=== PATIENT | male | born 1995 | race Caucasian/White ===

== ENCOUNTER 2020-10-23 09:20 | Emergency (ER) | payer OTHER ==
--- NOTE | 2020-10-23 09:22 | ERPHSYRPT ---
- History of Present Illness Time Seen by Provider: 10/23/20 09:22 Historian: patient, family Exam Limitations: no limitations Physician History: This is a 25-year-old white male who has history of gastroesophageal reflux disease and has had intermittent sharp, left anterior chest pain and left shoulder pain for approximately 2 months. He had significant attack of this same sharp, left-sided chest pain which radiated into his left shoulder and had associated shortness of breath and a heart rate that went in the 170s beats per minute per a pulse ox measurement. Patient was concerned he was having a heart attack and called ambulance service who brought him into the emergency room for evaluation. Patient has no known cardiac history. However, this patient has a hi story of gastroesophageal reflux disease. He has had the left shoulder pain evaluated by another emergency room approximately 1 week ago and within the last week he is also had the left shoulder pain evaluated by orthopedic services at another institution. Patient also had bilateral lower extremity venous Dopplers which did not show any DVTs per his report. The only medication he is taking is generic omeprazole. He has had no cough. He has no fevers chills. He denies abdominal pain. He denies nausea vomiting diarrhea. He denies any acute traumatic injury. He also denies any new emotional stressors in his life. Timing/Duration: week(s) (Eight), worse Quality: sharpness Severity of Pain-Max: moderate Severity of Pain-Current: moderate Modifying Factors: Improves With: nothing Associated Symptoms: shortness of breath Prior Chest Pain/Cardiac Workup: no prior cardiac workup Nitro Today/Relief: no nitro taken today Aspirin Treatment Today: no aspirin today Allergies/Adverse Reactions: No Known Drug Allergies Allergy (Unverified 10/23/20 09:23) Home Medications: PANTOPRAZOLE 40 mg Tablet [Protonix 40MG Tablet] 1 tab PO DAILY 10/23/20 [History] Travel Risk - International Travel Have you traveled outside of the country in past 3 weeks: No - Coronavirus Screening Are you exhibiting any of the following symptoms?: No Close contact with a COVID-19 positive Pt in past 14-21 Days: No - Review of Systems Constitutional: No Symptoms Eyes: No Symptoms Ears, Nose, & Throat: No Symptoms Respiratory: Dyspnea (Mild) Cardiac: Chest Pain Abdominal/Gastrointestinal: No Symptoms Genitourinary Symptoms: No Symptoms Musculoskeletal: No Symptoms Skin: No Symptoms Neurological: No Symptoms Psychological: No Symptoms Endocrine: No Symptoms Hematologic/Lymphatic: No Symptoms Immunological/Allergic: No Symptoms All Other Systems: Reviewed and Negative - Past Medical History Pertinent Past Medical History: Yes - Past Surgical History Past Surgical History: Yes - Nursing Vital Signs Nursing Vital Signs: Initial Vital Signs Temperature 98.0 F 10/23/20 09:25 Pulse Rate 87 10/23/20 09:25 Respiratory Rate 19 10/23/20 09:25 Blood Pressure 142/90 10/23/20 09:25 O2 Sat by Pulse Oximetry 98 10/23/20 09:25 Pain Scale Pain Intensity 6 - Physical Exam General Appearance: mild distress, alert, anxiety Eye Exam: PERRL/EOMI, eyes nml inspection Ears, Nose, Throat Exam: normal ENT inspection, moist mucous membranes Neck Exam: normal inspection, non-tender, supple, full range of motion Respiratory Exam: normal breath sounds, chest tenderness, lungs clear, airway intact, No respiratory distress Cardiovascular Exam: regular rate/rhythm, normal heart sounds, normal peripheral pulses Gastrointestinal/Abdomen Exam: soft, normal bowel sounds, No tenderness Rectal Exam: not done Back Exam: normal inspection, normal range of motion, No CVA tenderness, No vertebral tenderness Extremity Exam: normal inspection, normal range of motion, pelvis stable Neurologic Exam: alert, oriented x 3, cooperative, paper twister tender II-XII nml as tested, normal mood/affect, nml cerebellar function, nml station & gait, sensation nml Skin Exam: normal color, warm, dry Lymphatic Exam: No adenopathy SpO2 Interpretation: normal O2 Delivery: Room Air - Course Nursing assessment & vital signs reviewed: Yes EKG Interpreted by Me: RATE (90), Sinus Rhythm, NORMAL AXIS, NORMAL INTERVALS, NORMAL QRS, NORMAL ST-T, Other (No acute ischemia. No comparison EKG available.) Ordered Tests: Active Orders 24 hr Category Date Time Status Sapphire Stylus Grinder STAT Care 10/23/20 09:40 Active EKG-ER Only STAT Care 10/23/20 09:39 Active IV Insertion STAT Care 10/23/20 09:39 Active Pulse Oximetry (ED) STAT Care 10/23/20 09:39 Active CHEST 1 VIEW (PORTABLE) Stat Exams 10/23/20 09:39 Completed CBC W DIFF Stat Lab 10/23/20 09:39 Completed CMP Stat Lab 10/23/20 09:53 Completed D-DIMER QUANTITATIVE Stat Lab 10/23/20 09:53 Completed PROTIME WITH INR Stat Lab 10/23/20 09:53 Completed TROPONIN Q3H Lab 10/23/20 09:53 Completed TROPONIN Q3H Lab 10/23/20 12:45 Ordered TROPONIN Q3H Lab 10/23/20 15:45 Ordered TROPONIN Q3H Lab 10/23/20 18:45 Ordered TROPONIN Q3H Lab 10/23/20 21:45 Ordered Medication Summary Generic Name Dose Route Start Last Admin Trade Name Freq PRN Reason Stop Dose Admin Sodium Chloride 1,000 mls @ 100 mls/hr 10/23/20 09:45 10/23/20 09:53 Sodium Chloride 0.9% 1000 Ml IV 11/22/20 09:44 100 mls/hr .Q10H MALU Administration Discontinued Medications Generic Name Dose Route Start Last Admin Trade Name Freq PRN Reason Stop Dose Admin Aspirin 324 mg 10/23/20 09:39 10/23/20 09:53 Baby Aspirin 81 Mg Chew PO 10/23/20 09:40 Not Given STAT ONE Aspirin Confirm 10/23/20 09:42 Baby Aspirin 81 Mg Chew Administered 10/23/20 09:43 Dose 324 mg .ROUTE .STK-MED ONE Morphine Sulfate 4 mg 10/23/20 09:39 10/23/20 09:52 Morphine Sulfate 4 Mg Inj IV 10/23/20 09:40 4 mg STAT ONE Administration Morphine Sulfate Confirm 10/23/20 09:43 Morphine Sulfate 4 Mg Inj Administered 10/23/20 09:44 Dose 4 mg .ROUTE .STK-MED ONE Ondansetron HCl 4 mg 10/23/20 09:39 10/23/20 09:49 Zofran 4 Mg/2 Ml Vial IV 10/23/20 09:40 4 mg STAT ONE Administration Ondansetron HCl Confirm 10/23/20 09:42 Zofran 4 Mg/2 Ml Vial Administered 10/23/20 09:43 Dose 4 mg .ROUTE .STK-MED ONE Lab/Rad Data: Laboratory Result Diagrams 10/23/20 09:39 10/23/20 09:53 Laboratory Results 10/23/20 10/23/20 10/23/20 Range/Units 09:53 09:53 09:53 WBC (4.0-10.5) K/mm3 RBC (4.1-5.6) M/mm3 Hgb (12.5-18.0) gm/dl Hct (42-50) % MCV (78-100) fl MCH (26-32) pg MCHC (32-36) g/dl RDW (11.5-14.0) % Plt Count (150-450) K/mm3 MPV (7.5-11.0) fl Gran % (36.0-66.0) % Eos # (Auto) (0-0.5) Absolute Lymphs (auto) (1.0-4.6) Absolute Monos (auto) (0.0-1.3) Lymphocytes % (24.0-44.0) % Monocytes % (0.0-12.0) % Eosinophils % (0.00-5.0) % Basophils % (0.0-0.4) % Absolute Granulocytes (1.4-6.9) Basophils # (0-0.4) PT 13.1 H (8.83-12.87) SECONDS INR 1.16 (0.8-3.0) D-Dimer < 215 L (215-500) ng/mL Sodium 138 (137-145) mmol/L Potassium 4.1 (3.5-5.1) mmol/L Chloride 104 (98-107) mmol/L Carbon Dioxide 24 (22-30) mmol/L Anion Gap 14.6 (5-15) MEQ/L BUN 15 (9-20) mg/dL Creatinine 1.09 (0.66-1.25) mg/dL Estimated GFR > 60.0 ML/MIN Glucose 127 H (74-106) mg/dL Calcium 9.8 (8.4-10.2) mg/dL Total Bilirubin 0.70 (0.2-1.3) mg/dL AST 31 (17-59) U/L ALT 49 (0-50) U/L Alkaline Phosphatase 60 (38-126) U/L Troponin I < 0.012 (0.000-0.034) ng/mL Serum Total Protein 7.7 (6.3-8.2) g/dL Albumin 4.8 (3.5-5.0) g/dL 10/23/20 Range/Units 09:39 WBC 7.9 (4.0-10.5) K/mm3 RBC 5.40 (4.1-5.6) M/mm3 Hgb 15.8 (12.5-18.0) gm/dl Hct 47.3 (42-50) % MCV 87.6 (78-100) fl MCH 29.3 (26-32) pg MCHC 33.4 (32-36) g/dl RDW 12.8 (11.5-14.0) % Plt Count 309 (150-450) K/mm3 MPV 9.7 (7.5-11.0) fl Gran % 80.3 H (36.0-66.0) % Eos # (Auto) 0.01 (0-0.5) Absolute Lymphs (auto) 0.91 L (1.0-4.6) Absolute Monos (auto) 0.60 (0.0-1.3) Lymphocytes % 11.6 L (24.0-44.0) % Monocytes % 7.6 (0.0-12.0) % Eosinophils % 0.1 (0.00-5.0) % Basophils % 0.4 (0.0-0.4) % Absolute Granulocytes 6.30 (1.4-6.9) Basophils # 0.03 (0-0.4) PT (8.83-12.87) SECONDS INR (0.8-3.0) D-Dimer (215-500) ng/mL Sodium (137-145) mmol/L Potassium (3.5-5.1) mmol/L Chloride (98-107) mmol/L Carbon Dioxide (22-30) mmol/L Anion Gap (5-15) MEQ/L BUN (9-20) mg/dL Creatinine (0.66-1.25) mg/dL Estimated GFR ML/MIN Glucose (74-106) mg/dL Calcium (8.4-10.2) mg/dL Total Bilirubin (0.2-1.3) mg/dL AST (17-59) U/L ALT (0-50) U/L Alkaline Phosphatase (38-126) U/L Troponin I (0.000-0.034) ng/mL Serum Total Protein (6.3-8.2) g/dL Albumin (3.5-5.0) g/dL - Progress Progress: improved Air Movement: good Progress Note: 10/23/20 10:25 Chest x-ray shows no acute cardiopulmonary process. Blood Culture(s) Obtained: No Antibiotics given: No - Departure Departure Disposition: Home Clinical Impression: Chest pain, Shoulder pain, left Condition: Stable Critical Care Time: No Additional Instructions: Use Tylenol and ibuprofen for pain control. Follow-up with a primary care physician for further management of your symptoms.
[2020-10-23] MEDS ORDERED: BABY ASPIRIN 81 MG CHEW PO ONE (09:39)
[2020-10-23] MEDS ORDERED: Zofran 4 MG/2 ML VIAL IV ONE (09:39)
[2020-10-23] MEDS ORDERED: MORPHINE SULFATE 4 MG INJ IV ONE (09:39)
[2020-10-23] MEDS ORDERED: Zofran 4 MG/2 ML VIAL ONE (09:42)
[2020-10-23] MEDS ORDERED: BABY ASPIRIN 81 MG CHEW ONE (09:42)
[2020-10-23] MEDS ORDERED: Sodium Chloride 0.9% 1000 ML 1,000 ML ONE (09:43)
[2020-10-23] MEDS ORDERED: MORPHINE SULFATE 4 MG INJ ONE (09:43)
[2020-10-23] MEDS ORDERED: Sodium Chloride 0.9% 1000 ML 1,000 ML IV SCH (09:45)
--- NOTE | 2020-10-23 09:58 | XRAY ---
Indication: Chest pain. Comparison: None Portable chest demonstrates normal heart, lungs, and bony thorax.
[2020-10-23 10:02] LABS: BASOPHIL % 0.4 % (0.0-0.4); Basophil (Absolute #) 0.03 (0-0.4); Eosinophil % 0.1 % (0.00-5.0); Eosinophil (Absolute #) 0.01 (0-0.5); Hematocrit 47.3 % (42-50); Hemoglobin 15.8 gm/dl (12.5-18.0); Lymphocyte (Absolute #) 0.91 (1.0-4.6); Lymphocytes % 11.6 % (24.0-44.0); Mean Cell Volume 87.6 fl (78-100); Mean Corpuscular Hemoglobin 29.3 pg (26-32); Mean Corpuscular Hgb Concent. 33.4 g/dl (32-36); Mean Platelet Volume 9.7 fl (7.5-11.0); Monocytes % 7.6 % (0.0-12.0); Neutrophil % 80.3 % (36.0-66.0); Platelet Count 309 K/mm3 (150-450); Red Cell Distribution Width 12.8 % (11.5-14.0); White Blood Count 7.9 K/mm3 (4.0-10.5)
[2020-10-23 10:05] LABS: INR 1.16 (0.8-3.0); PROTIME 13.1 SECONDS (8.83-12.87)
[2020-10-23 10:08] LABS: D-DIMER QUANTITATIVE < 215 ng/mL (215-500)
[2020-10-23 10:10] LABS: ALBUMIN 4.8 g/dL (3.5-5.0); ALKALINE PHOSPHATASE 60 U/L (38-126); ANION GAP 14.6 MEQ/L (5-15); BLOOD UREA NITROGEN 15 mg/dL (9-20); CHLORIDE 104 mmol/L (98-107); Calcium 9.8 mg/dL (8.4-10.2); Carbon Dioxide 24 mmol/L (22-30); Creatinine 1 1.09 mg/dL (0.66-1.25); EST GLOMERULAR FILTRATION RATE > 60.0 ML/MIN; Glucose 127 mg/dL (74-106); Potassium 4.1 mmol/L (3.5-5.1); SGOT/AST 31 U/L (17-59); SGPT/ALT 49 U/L (0-50); SODIUM 138 mmol/L (137-145); Total Protein 7.7 g/dL (6.3-8.2)
[2020-10-23 11:04] VITALS: BP 156/89; PULSE 89; O2SAT 97
== END 2020-10-23 11:05 | disposition home or self-care (01) ==
LOC: ED 09:20
DX: R07.9 Chest pain, unspecified (principal); M25.512 Pain in left shoulder
CPT/HCPCS: 36415; 71045; 80053; 84484; 85025; 85379; 85610; 93005; 93041; 94760; 96374; 96375; 99284; J2270; J2405; A9270-GY